=== PATIENT | male | born 1965 | race Two or more races ===

== ENCOUNTER 2022-08-22 20:43 | Inpatient (IN) | payer MEDICAID, OTHER ==
[~2022-08-22] VITALS: Ht 167.6 cm; Wt 79.8 kg
--- NOTE | 2022-08-22 20:50 | NUR ---
[id number] FROM [facility] FOR HEADACHE AND WITNESSED SYNCOPAL EPISODE AT GNOSTICISM. LEFT SIDED WEAKNESS NOTED. HX OF STROKE 04/2022 W/ RISIDUAL LEFT SIDED WEAKNESS. NO FACIAL DROOP. NO SLURRED SPEECH. ADMITS TO KO. DENIES HEAD TRAUMA. PT IS ALERT AND ORIENTED. RR EVEN AND NON LABORED. CONNECTD TO MONITOR. MD AT BEDSIDE.
[2022-08-22] MEDS ORDERED: MORPHINE SULFATE INJ 2 MG/ML DISP.SYRIN ONE (21:00)
[2022-08-22] MEDS ORDERED: MORPHINE SULFATE INJ 2 MG/ML DISP.SYRIN IV ONE (21:00)
--- NOTE | 2022-08-22 21:00 | NUR ---
PT TAKEN TO CT SCAN
[2022-08-22 21:11] LABS: BASOPHILS % (AUTO) 0.6 % (0.0-2.0); EOSINOPHILS % (AUTO) 1.1 % (0.0-6.0); HEMATOCRIT 43 % (39-51); HEMOGLOBIN 14.5 g/dL (13.5-17.5); LYMPHOCYTES # (AUTO) 2.8 K/uL (0.8-4.8); MEAN CORPUSCULAR HGB CONC 34 g/dl (31.0-36.0); MEAN CORPUSCULAR VOLUME 92 fL (80-96); MONOCYTES # (AUTO) 0.7 K/uL (0.1-1.30); MONOCYTES % (AUTO) 10.6 % (2.0-12.0); NEUTROPHILS # (AUTO) 2.7 K/uL (1.8-8.9); NEUTROPHILS % (AUTO) 43.7 % (43.0-81.0); PLATELET COUNT (AUTO) 259 K/uL (150-450); RED BLOOD CELL COUNT(AUTO) 4.69 MIL/uL (4.5-6.0); WHITE BLOOD COUNT (AUTO) 6.3 K/uL (4.3-11.0)
--- NOTE | 2022-08-22 21:14 | NUR ---
BLOOD COLLECTED AND SENT TO LAB
--- NOTE | 2022-08-22 21:31 | NUR ---
COVID SWAB SENT TO LAB
[2022-08-22 21:36] LABS: CALCIUM, SERUM 8.9 mg/dL (8.5-10.1); CARBON DIOXIDE 24 mmol/L (21-32); CHLORIDE 102 mmol/L (98-107); CREATININE 1.1 mg/dL (0.6-1.3); GLUCOSE 205 mg/dL (74-106); POTASSIUM 3.5 mmol/L (3.5-5.1); SODIUM SERUM 136 mmol/L (136-145); UREA NITROGEN, BLOOD 17 mg/dL (7-18)
[2022-08-22 21:40] LABS: ALANINE AMINOTRANSFERASE 27 U/L (12-78); ALBUMIN 3.8 g/dL (3.4-5.0); ALKALINE PHOSPHATASE 84 U/L (46-116); ASPARTATE AMINOTRANSFERASE 25 U/L (15-37); BILIRUBIN,DIRECT 0.1 mg/dL (0.0-0.2); BILIRUBIN,TOTAL 0.3 mg/dL (0.2-1.0); TOTAL PROTEIN, SERUM 7.4 g/dL (6.4-8.2)
[2022-08-22] MEDS ORDERED: MAG HYDROX/AL HYDROX/SIMETH 30 ML UDC PO PRN (23:30)
[2022-08-22] MEDS ORDERED: DEXTROSE 50%-WATER 50 ML DISP.SYRIN IV PRN (23:30)
[2022-08-22] MEDS ORDERED: MAGNESIUM HYDROXIDE 30 ML UDC PO PRN (23:30)
[2022-08-22] MEDS ORDERED: ONDANSETRON HCL/PF 4 MG/2 ML VIAL IVP PRN (23:30)
[2022-08-22] MEDS ORDERED: ZOLPIDEM TARTRATE 5 MG TABLET PO PRN (23:30)
[2022-08-22] MEDS ORDERED: hydrALAZINE HCL IV 20 MG VIAL IV PRN (23:30)
[2022-08-22] MEDS ORDERED: Z GUARD REMEDY 4 OZ OINT TP PRN (23:30)
[2022-08-22] MEDS ORDERED: ACETAMINOPHEN 325 MG TABLET PO PRN (23:30)
--- NOTE | 2022-08-22 23:39 | NUR ---
REPORT GIVEN TO HAYDEN BAINS FOR SERA
[2022-08-23] VITALS (9 sets, daily range): BP systolic 120–165; BP diastolic 76–98
--- NOTE | 2022-08-23 00:16 | NUR ---
RN NOTE PT ARRIVED TO UNIT A/OX4 AMBULATORY NOTED STEADY GAIT. PT ON ROOM AIR TOLERATING WELL. PT IRISH SPEAKING ABLE TO MAKE NEEDS KNOW IN FRENCH. PT NOTED WITH IV ACCESS ON THE RAC #18G S/L. PT PLACED ON TELE MONITOR READING SR 69.ORIENTED TO UNIT AND ROOM CALL LIGHT WITHIN REACH. TABLE WITHIN REACH. HOB ELEVATED FOR ASPIRATION PRECAUTIONS.
[2022-08-23] MEDS: INSULIN REGULAR, HUMAN 100 UNIT/ML 3 ML VIAL SQ PRN ×4 (06:23→21:38)
--- NOTE | 2022-08-23 06:40 | NUR ---
RN CLOSING NOTE PT REMAINS A/OX4 PT ON ROOM AIR TOLERATING WELL. PT SOUTH KOREAN SPEAKING ABLE TO MAKE NEEDS KNOW IN [place]. PT NOTED WITH IV ACCESS ON THE RAC #18G S/L. PT PLACED ON TELE MONITOR READING SR 85. ALL NEEDS MET. CALL LIGHT WITHIN REACH TABLE WITHIN REACH. WILL ENDORSE CARE TO DAY SHIFT NURSE.
[2022-08-23] MEDS: BLOOD SUGAR DIAGNOSTIC 1 EACH STRIP IN SCH ×4 (07:12→21:15)
[2022-08-23 07:34] LABS: BASOPHILS % (AUTO) 0.5 % (0.0-2.0); EOSINOPHILS % (AUTO) 1.1 % (0.0-6.0); HEMATOCRIT 44 % (39-51); HEMOGLOBIN 14.9 g/dL (13.5-17.5); LYMPHOCYTES % (AUTO) 44.4 % (20.0-44.0); MEAN CORPUSCULAR HGB CONC 33 g/dl (31.0-36.0); MEAN CORPUSCULAR VOLUME 92 fL (80-96); MONOCYTES # (AUTO) 0.8 K/uL (0.1-1.30); MONOCYTES % (AUTO) 11.9 % (2.0-12.0); NEUTROPHILS # (AUTO) 2.9 K/uL (1.8-8.9); NEUTROPHILS % (AUTO) 42.1 % (43.0-81.0); PLATELET COUNT (AUTO) 276 K/uL (150-450); RED BLOOD CELL COUNT(AUTO) 4.83 MIL/uL (4.5-6.0); WHITE BLOOD COUNT (AUTO) 6.8 K/uL (4.3-11.0)
--- NOTE | 2022-08-23 07:45 | NUR ---
RN OPENING NOTES RECEIVED PATIENT AWAKE IN BED, A/OX4, PT ON ROOM AIR TOLERATING WELL. PT UKRAINIAN SPEAKING, ABLE TO MAKE NEEDS KNOWN IN [place]. PT NOTED WITH IV ACCESS ON THE RAC #18G S/L. PT PLACED ON TELE MONITOR READING SR 60. ROOM CALL LIGHT WITHIN REACH. TABLE WITHIN REACH. HOB ELEVATED. WILL CONTINUE TO MONITOR PATIENT.
[2022-08-23] MEDS: ASPIRIN 81 MG TAB.CHEW PO SCH (08:34)
[2022-08-23] MEDS: APIXABAN 5 MG TABLET PO SCH ×2 (08:37→21:15)
[2022-08-23] MEDS ORDERED: PANTOPRAZOLE 40 MG VIAL IV SCH (09:00)
--- NOTE | 2022-08-23 09:24 | NUR ---
RN NOTES ORTHOSTATICS BLOOD PRESSURE TAKEN WITH THE FOLLOWING RESULTS: LYIN/86, SITTING 143/91 AND STANDING 136/65. PT WITH NO C/O HEADACHE OR LIGHTHEADEDNESS AT THIS TIME. WILL CONTINUE TO MONITOR.
[2022-08-23 09:37] LABS: ALBUMIN 3.7 g/dL (3.4-5.0); BILIRUBIN,TOTAL 0.5 mg/dL (0.2-1.0); CALCIUM, SERUM 9.2 mg/dL (8.5-10.1); CREATININE 1.1 mg/dL (0.6-1.3); MAGNESIUM 2.2 mg/dL (1.8-2.4); PHOSPHORUS 4.3 mg/dL (2.5-4.9); POTASSIUM 3.7 mmol/L (3.5-5.1); TOTAL PROTEIN, SERUM 7.2 g/dL (6.4-8.2)
[2022-08-23] MEDS: IV NS 0.9% 1,000 ML IV SCH ×2 (09:54→14:23)
[2022-08-23] MEDS ORDERED: UNK HTN PO (11:40)
[2022-08-23 12:31] LABS: THYROID STIMULATING HORMONE 4.397 uIU/mL (0.358-3.74)
--- NOTE | 2022-08-23 18:28 | NUR ---
NATURAL GAS TRADER CLOSING NOTES PATIENT IN BED, A/OX4, PT ON ROOM AIR TOLERATING WELL. NO C/O OF CHEST PAIN, PT [place] ISLANDER SPEAKING, ABLE TO MAKE NEEDS KNOWN IN [place]. PT NOTED WITH IV ACCESS ON THE RAC #18G S/L INTACT AND PATENT. PT PLACED ON TELE MONITOR READING SR 77. ROOM CALL LIGHT WITHIN REACH. TABLE WITHIN REACH. HOB ELEVATED. WILL ENDORSE TO ETL ANALYST DEVELOPER NURSE FOR SERA.
--- NOTE | 2022-08-23 19:31 | NUR ---
STEEL RULE INSPECTOR OPENING NOTES PATIENT IN BED, A/OX4, PT ON ROOM AIR TOLERATING WELL. NO C/O OF CHEST PAIN, PT GIBR[place]ARIAN SPEAKING, ABLE TO MAKE NEEDS KNOWN IN [place]. PT NOTED WITH IV ACCESS ON THE RAC #18G S/L INTACT AND PATENT. PT PLACED ON TELE MONITOR READING SR 77. ROOM CALL LIGHT WITHIN REACH. TABLE WITHIN REACH. HOB ELEVATED.
[2022-08-23] MEDS ORDERED: ATORVASTATIN 10 MG TABLET PO SCH (22:00)
[2022-08-24] VITALS: BP 123/77
[2022-08-24 04:59] VITALS: BP 129/89
--- NOTE | 2022-08-24 06:35 | NUR ---
SENIOR ACCOUNTANT CLOSING NOTES PATIENT IN BED, A/OX4, PT ON ROOM AIR TOLERATING WELL. NO C/O OF CHEST PAIN, PT LIBERIAN SPEAKING, ABLE TO MAKE NEEDS KNOWN IN [place]. PT NOTED WITH IV ACCESS ON THE RAC #18G S/L INTACT AND PATENT. PT PLACED ON TELE MONITOR READING SR 90S. ROOM CALL LIGHT WITHIN REACH. TABLE WITHIN REACH. HOB ELEVATED. WILL ENDORSE CARE TO DAY SHIFT NURSE.
[2022-08-24 07:00] VITALS: BP 145/92
[2022-08-24] MEDS: BLOOD SUGAR DIAGNOSTIC 1 EACH STRIP IN SCH ×3 (07:18→17:04)
[2022-08-24] MEDS: INSULIN REGULAR, HUMAN 100 UNIT/ML 3 ML VIAL SQ PRN ×3 (07:18→17:04)
--- NOTE | 2022-08-24 07:50 | NUR ---
ROOFER HELPER OPENING NOTES RECEIVED PATIENT AWAKE IN BED, A/OX4, TURKISH SPEAKING, ABLE TO MAKE NEEDS KNOWN IN [place], PT ON ROOM AIR TOLERATING WELL. NO S/S OF DISTRESS, PT NOTED WITH IV ACCESS ON THE RAC #18G S/L. PT PLACED ON TELE MONITOR READING SR 60. ROOM CALL LIGHT WITHIN REACH. TABLE WITHIN REACH. HOB ELEVATED. WILL CONTINUE TO MONITOR PATIENT.
[2022-08-24] MEDS: ASPIRIN 81 MG TAB.CHEW PO SCH (08:45)
[2022-08-24] MEDS: APIXABAN 5 MG TABLET PO SCH (08:46)
[2022-08-24] MEDS ORDERED: PANTOPRAZOLE 40 MG TABLET.DR PO SCH (09:00)
[2022-08-24 16:00] VITALS: BP 135/81
--- NOTE | 2022-08-24 16:31 | NUR ---
RN NOTES CAROTID ARTERY ULTRASOUND DONE TODAY BUT THE RESULT NOT POSTED YET, CALLED AND SPOKE TO DR. SANTIAGO IF IT'S OKAY TO DISCHARGE PATIENT HOME WITHOUT CAROTID US RESULT, HE SAID 'OK TO SEND THE PATIENT HOME'.
--- NOTE | 2022-08-24 18:13 | NUR ---
DISCHARGE NOTES PATIENT DISCHARGE HOME IN STABLE CONDITION. A/O X4. ABLE TO MAKE NEEDS KNOWN. AMBULATORY WITH STEADY GAIT. PATIENT IS BREATHING EVENLY AND UNLABORED ON ROOM AIR, NO SIGNS OF DISTRESS NOTED. PT WITH NO SKIN ISSUES. DISCHARGE INSTRUCTIONS GIVEN VERBALLY AND IN WRITTEN FORM, PT VERBALIZED UNDERSTANDING. PATIENT ALL BELONGINGS ACCOUNTED FOR, BELONGING SHEET SIGNED BY PT. IV ACCESS ON RAC G#18 REMOVED, DRY DRESSING APPLIED AT SITE, NO SIGNS OF BLEEDING NOTED. NAME ARMBAND REMOVED. PATIENT LEFT UNIT AT 1800 AMBULATORY ACCOMPANIED BY CIARA SLADE. CHARGE NURSE AWARE OF D/C.
== END 2022-08-24 18:00 | disposition home or self-care (01) | DRG 48 ==
LOC: ER 20:44 → TELE 23:36 → MED 08-24 09:59
PROVIDERS: ADMIT Nurse Practitioner Acute Care; ATTEND Internal Medicine
DX: G90.8 Other disorders of autonomic nervous system (principal); I69.354 Hemiplegia and hemiparesis following cerebral infarction affecting left non-dominant side; I10 Essential (primary) hypertension; I48.0 Paroxysmal atrial fibrillation; E11.9 Type 2 diabetes mellitus without complications; Z79.01 Long term (current) use of anticoagulants; Z20.822 Contact with and (suspected) exposure to COVID-19
CPT/HCPCS: 36415; 70450-TC; 71045-TC; 80048-TC; 80053-TC; 80061-TC; 80076-TC; 82962-TC; 83735-TC; 84100-TC; 84443-TC; 84484-TC; 85025-TC; 85730-TC; 87081-TC; 93307-TC; 93880-TC; 97116-TC; 97530-TC; A4223; C9113; C9803; G0378; J1815; J2270; J7030